=== PATIENT | female | born 1990 | race Native Hawaiian/Other Pacific Islander ===

== ENCOUNTER 2016-06-04 09:01 | Emergency (ER) | payer OTHER ==
[~2016-06-04] VITALS: Ht 162.6 cm; Wt 68.0 kg
[2016-06-04 09:50] LABS: PLATELET COUNT 272 K/uL (152-353)
== END 2016-06-04 10:49 | disposition home or self-care (01) ==
LOC: ED 09:01
DX: R50.9 Fever, unspecified (principal); J20.9 Acute bronchitis, unspecified; J01.90 Acute sinusitis, unspecified; J06.9 Acute upper respiratory infection, unspecified
CPT/HCPCS: 85027; 87081; 87804; 87880; 96372; 99283; J0696

== ENCOUNTER 2017-06-19 04:20 | Emergency (ER) | payer OTHER ==
[~2017-06-19] VITALS: Ht 162.6 cm; Wt 95.3 kg
== END 2017-06-19 05:57 | disposition home or self-care (01) ==
LOC: ED 04:20
DX: J06.9 Acute upper respiratory infection, unspecified (principal)
CPT/HCPCS: 87804; 99282

== ENCOUNTER 2017-11-06 10:05 | Emergency (ER) | payer OTHER ==
[~2017-11-06] VITALS: Ht 162.6 cm; Wt 93.9 kg
[2017-11-06 10:09] VITALS: TEMP 98.1
[2017-11-06 10:50] LABS: PLATELET COUNT 309 K/uL (152-353)
[2017-11-06 11:05] LABS: POTASSIUM 3.7 mmol/L (3.6-5.2)
[2017-11-06 13:34] VITALS: BP 131/83
== END 2017-11-06 13:34 | disposition home or self-care (01) ==
LOC: ED 10:05
DX: K52.9 Noninfective gastroenteritis and colitis, unspecified (principal); N39.0 Urinary tract infection, site not specified; N83.202 Unspecified ovarian cyst, left side
CPT/HCPCS: 36415; 80053; 81000; 82150; 83690; 85027; 87086; 87088; 99283; Q9963

== ENCOUNTER 2018-07-12 11:13 | Emergency (ER) | payer OTHER ==
[~2018-07-12] VITALS: Ht 162.6 cm; Wt 93.9 kg
[2018-07-12 12:35] VITALS: BP 121/84; TEMP 97.9
== END 2018-07-12 12:35 | disposition home or self-care (01) ==
LOC: ED 11:13
PROC: 2W2CX4Z Dressing of Right Lower Arm using Bandage (ICD-10-PCS; principal; 2018-07-12)
DX: T23.271A Burn of second degree of right wrist, initial encounter (principal); T31.0 Burns involving less than 10% of body surface; X10.1XXA Contact with hot food, initial encounter
CPT/HCPCS: 99282

== ENCOUNTER 2018-11-14 12:17 | Emergency (ER) | payer OTHER ==
[~2018-11-14] VITALS: Ht 162.6 cm; Wt 90.7 kg
[2018-11-14 13:41] LABS: PLATELET COUNT 255 K/uL (152-353)
[2018-11-14 13:57] LABS: POTASSIUM 3.5 mmol/L (3.6-5.2)
[2018-11-14 15:00] VITALS: BP 131/83; TEMP 98.7
== END 2018-11-14 15:00 | disposition home or self-care (01) ==
LOC: ED 12:17
PROVIDERS: Hospitalist
DX: N83.209 Unspecified ovarian cyst, unspecified side (principal); N39.0 Urinary tract infection, site not specified
CPT/HCPCS: 80053; 81000; 81025; 85027; 96372; 99283; J1885

== ENCOUNTER 2018-11-30 07:01 | Emergency (ER) | payer OTHER ==
[~2018-11-30] VITALS: Ht 165.1 cm; Wt 90.7 kg
[2018-11-30 07:10] VITALS: TEMP 98.1
[2018-11-30 08:15] VITALS: BP 129/81
== END 2018-11-30 08:15 | disposition home or self-care (01) ==
LOC: ED 07:01
PROC: 0JQK0ZZ Repair Left Hand Subcutaneous Tissue and Fascia, Open Approach (ICD-10-PCS; principal; 2018-11-30)
DX: S61.412A Laceration without foreign body of left hand, initial encounter (principal); W26.0XXA Contact with knife, initial encounter
CPT/HCPCS: 90471; 90715; 99283

== ENCOUNTER 2018-12-07 08:49 | Emergency (ER) | payer OTHER ==
[~2018-12-07] VITALS: Ht 165.1 cm; Wt 90.7 kg
[2018-12-07 09:09] VITALS: BP 122/85; TEMP 98.1
== END 2018-12-07 09:45 | disposition home or self-care (01) ==
LOC: ED 08:49
DX: Z48.02 Encounter for removal of sutures (principal)

== ENCOUNTER 2019-07-25 11:54 | Emergency (ER) | payer OTHER ==
[~2019-07-25] VITALS: Ht 165.1 cm; Wt 90.7 kg
[2019-07-25 12:14] VITALS: TEMP 97.9
[2019-07-25 13:05] VITALS: BP 117/81
== END 2019-07-25 13:05 | disposition home or self-care (01) ==
LOC: ED 11:54
DX: N39.0 Urinary tract infection, site not specified (principal); M54.9 Dorsalgia, unspecified
CPT/HCPCS: 81000; 81025; 87077; 87086; 87088; 87185; 87186; 99283

== ENCOUNTER 2020-08-13 14:36 | Emergency (ER) | payer OTHER ==
[~2020-08-13] VITALS: Ht 165.1 cm; Wt 97.5 kg
[2020-08-13 14:45] VITALS: BP 146/93; TEMP 97.6
[2020-08-13 15:51] LABS: PLATELET COUNT 239 K/uL (152-353)
[2020-08-13 16:05] LABS: POTASSIUM 3.6 mmol/L (3.6-5.2)
== END 2020-08-13 17:17 | disposition home or self-care (01) ==
LOC: ED 14:36
PROVIDERS: Family Medicine
DX: U07.1 COVID-19 (principal)
CPT/HCPCS: 80053; 85027; 87502; 87635; 87651; 99283; U0003

== ENCOUNTER 2021-02-18 13:29 | Emergency (ER) | payer OTHER ==
[~2021-02-18] VITALS: Ht 165.1 cm; Wt 97.5 kg
[2021-02-18 13:43] VITALS: TEMP 98.5
[2021-02-18 15:08] VITALS: BP 136/82
== END 2021-02-18 15:09 | disposition home or self-care (01) ==
LOC: ED 13:29
DX: J01.80 Other acute sinusitis (principal); Z20.822 Contact with and (suspected) exposure to COVID-19; Z86.16 Personal history of COVID-19; F17.210 Nicotine dependence, cigarettes, uncomplicated
CPT/HCPCS: 87635; 87651; 99283; U0003

== ENCOUNTER 2021-07-09 09:29 | Emergency (ER) | payer OTHER ==
[~2021-07-09] VITALS: Ht 165.1 cm; Wt 94.3 kg
[2021-07-09 09:30] VITALS: BP 137/83; TEMP 97.1
[2021-07-09 10:00] LABS: PLATELET COUNT 222 K/uL (152-353)
[2021-07-09 10:16] LABS: POTASSIUM 3.4 mmol/L (3.6-5.2)
== END 2021-07-09 11:39 | disposition home or self-care (01) ==
LOC: ED 09:29
PROVIDERS: Emergency Medicine
DX: R05.8 Other specified cough (principal); J45.901 Unspecified asthma with (acute) exacerbation; Z20.822 Contact with and (suspected) exposure to COVID-19; F17.290 Nicotine dependence, other tobacco product, uncomplicated
CPT/HCPCS: 80053; 85027; 87502; 87635; 94664; 96372; 99283; J2930; U0003

== ENCOUNTER 2021-09-27 11:25 | Emergency (ER) | payer OTHER ==
[~2021-09-27] VITALS: Ht 165.1 cm; Wt 94.3 kg
[2021-09-27 11:30] VITALS: BP 142/80; TEMP 98.3
== END 2021-09-27 12:59 | disposition home or self-care (01) ==
LOC: ED 11:25
DX: Z53.21 Procedure and treatment not carried out due to patient leaving prior to being seen by health care provider (principal)
CPT/HCPCS: 99281